=== PATIENT | female | born 1990 | race Caucasian/White ===

== ENCOUNTER 2017-05-24 08:08 | Inpatient (IN) | payer OTHER ==
[2017-05-24 08:32] VITALS: BP 111/62
[2017-05-24] MEDS ORDERED: MORPHINE SULFATE/PF 1 MG/ML 10 ML AMP ONE (09:24)
[2017-05-24] MEDS ORDERED: FentaNYL CITRATE-PF 100 MCG/2 ML VIAL ONE (09:24)
[2017-05-24] MEDS ORDERED: CeFAZolin 2 GM/DEXTROSE 50 ML IV ONE (09:24)
[2017-05-24] MEDS ORDERED: CITRIC ACID/SODIUM CITRATE 30 ML SOLUTION UDCUP PO ONE (09:30)
[2017-05-24] MEDS ORDERED: RINGERS SOLUTION,LACTATED 1,000 ML IV SCH (09:30)
[2017-05-24] MEDS ORDERED: METOCLOPRAMIDE HCL 5 MG/ML 2 ML VIAL IVP ONE (09:30)
[2017-05-24 09:45] LABS: BASOPHILS % (AUTO) 0.5 % (0.0-2.0); EOSINOPHILS % (AUTO) 1.1 % (1.0-6.0); HEMATOCRIT 36.8 % (36-46); HEMOGLOBIN 12.6 g/dL (12.0-16.0); LYMPHOCYTES # (AUTO) 2.7 K/uL (1.0-4.8); LYMPHOCYTES % (AUTO) 23.1 % (22.0-44.0); MEAN CORPUSCULAR HEMOGLOBIN 32.1 pg (26.0-34.0); MEAN CORPUSCULAR HGB CONC 34.2 G/dL (31.0-37.0); MEAN CORPUSCULAR VOLUME 94 fL (80-100); MONOCYTES # (AUTO) 0.7 K/uL (0.1-1.0); MONOCYTES % (AUTO) 5.9 % (2.0-9.0); NEUTROPHILS # (AUTO) 8.1 K/uL (1.8-7.7); NEUTROPHILS % (AUTO) 69.4 % (40.0-70.0); PLATELET COUNT (AUTO)-OB 216 K/uL (150-450); RED BLOOD CELL COUNT(AUTO) 3.92 MIL/uL (4.00-5.20); RED CELL DISTRIBUTION WIDTH 13.8 % (11.5-14.5)
[2017-05-24] MEDS ORDERED: PREN1TAB80 PO (10:12)
[2017-05-24] MEDS ORDERED: ACETAMINOPHEN/CODEINE 300-30 MG TABLET PO PRN (11:30)
[2017-05-24] MEDS ORDERED: LANOLIN 7 GM OINTMENT TP PRN (11:30)
[2017-05-24] MEDS ORDERED: MEPERIDINE-PF 25 MG/ML SYRINGE IVP PRN (11:45)
[2017-05-24] MEDS ORDERED: NALBUPHINE HCL 10 MG/ML VIAL IVP PRN (11:45)
[2017-05-24] MEDS ORDERED: ONDANSETRON HCL 4 MG/2 ML VIAL IVP PRN ×2 (11:45)
[2017-05-24] MEDS ORDERED: FentaNYL CITRATE-PF 100 MCG/2 ML VIAL IVP PRN ×6 (11:45)
[2017-05-24] MEDS ORDERED: PROMETHAZINE HCL 12.5 MG in SODIUM CHLORIDE 0.9% 50 ML IV PRN (11:45)
[2017-05-24] MEDS ORDERED: DiphenhydrAMINE HCL 50 MG/ML VIAL IVP PRN ×2 (11:45)
[2017-05-24] MEDS ORDERED: NALOXONE HCL 0.4 MG/ML VIAL IVP PRN (11:45)
[2017-05-24] MEDS ORDERED: DEXAMETHASONE SOD PHOS 4 MG/ML VIAL IVP PRN (11:45)
[2017-05-24] MEDS ORDERED: NALBUPHINE HCL 10 MG/ML VIAL ONE (11:49)
[2017-05-24] MEDS: NALBUPHINE HCL 10 MG/ML VIAL IVP SCH ×2 (12:07→18:29)
[2017-05-24] MEDS: DEXTROSE 5%-0.45% SODIUM CHL 1,000 ML IV SCH ×3 (12:58→20:53)
[2017-05-25] MEDS: NALBUPHINE HCL 10 MG/ML VIAL IVP SCH ×2 (00:19→05:55)
[2017-05-25] MEDS: DEXTROSE 5%-0.45% SODIUM CHL 1,000 ML IV SCH (01:06)
[2017-05-25] MEDS ORDERED: EPHEDrine SULFATE 50 MG/ML VIAL IM ONE (05:37)
[2017-05-25] MEDS ORDERED: ONDANSETRON HCL 4 MG/2 ML VIAL IVP ONE (05:37)
[2017-05-25] MEDS ORDERED: LIDOCAINE HCL/PF 2% 5 ML VIAL IM ONE (05:37)
[2017-05-25] MEDS ORDERED: PHENYLEPHRINE HCL 10 MG/ML VIAL IVP ONE (05:37)
[2017-05-25] MEDS ORDERED: OXYTOCIN 10 UNITS/ML VIAL IM ONE (05:37)
[2017-05-25] MEDS ORDERED: 0.9% SODIUM CHLORIDE 10 ML VIAL IVP ONE (05:37)
[2017-05-25] MEDS ORDERED: DEXAMETHASONE SOD PHOS 4 MG/ML VIAL IVP ONE (05:37)
[2017-05-25] MEDS: IBUPROFEN 800 MG TABLET PO SCH ×3 (06:49→19:51)
[2017-05-25] MEDS: MAGNESIUM HYDROXIDE SUSPENSION 30 ML UDCUP PO SCH ×2 (08:47→19:52)
[2017-05-25] MEDS: ACETAMINOPHEN/CODEINE 300-30 MG TABLET PO PRN ×2 (09:14→17:21)
[2017-05-26] MEDS: IBUPROFEN 800 MG TABLET PO SCH ×4 (03:03→21:27)
[2017-05-26] MEDS: MAGNESIUM HYDROXIDE SUSPENSION 30 ML UDCUP PO SCH ×2 (08:22→21:00)
[2017-05-27] MEDS: IBUPROFEN 800 MG TABLET PO SCH ×2 (03:32→09:40)
[2017-05-27] MEDS: MAGNESIUM HYDROXIDE SUSPENSION 30 ML UDCUP PO SCH (09:00)
[2017-05-27] MEDS ORDERED: IBUP-2071 PO (10:34)
[2017-05-27] MEDS ORDERED: DSS100 PO (10:35)
[2017-05-27] MEDS ORDERED: ACET1TAB12 PO (10:40)
== END 2017-05-27 13:20 | disposition home or self-care (01) | DRG 766 ==
LOC: OBSVTOIN 08:08 → 4S 08:08
PROVIDERS: ADMIT Obstetrics & Gynecology; ATTEND Obstetrics & Gynecology
PROC: 10D00Z1 Extraction of Products of Conception, Low, Open Approach (ICD-10-PCS; principal; 2017-05-24)
DX: O32.1XX0 Maternal care for breech presentation, not applicable or unspecified (principal); Z37.0 Single live birth; Z3A.39 39 weeks gestation of pregnancy
CPT/HCPCS: 86850; 86900; 86901; 87081; J0690; J1100; J2300; J2370; J2405; J2590; J2765; J3010; J3490; J7120

== ENCOUNTER 2020-02-23 11:45 | Observation (INO) | payer OTHER ==
[~2020-02-23] VITALS: Ht 162.6 cm; Wt 76.7 kg
[~2020-02-23 11:45] MED LIST: ACET-2080 PO; DSS100 PO; IBUP-2071 PO; PREN1TAB80 PO
[2020-02-23 12:15] LABS: COVID AG,FIA SOURCE NASOPHARYNGEAL
== END 2020-02-23 12:05 | disposition home or self-care (01) ==
LOC: 4S 11:45
PROVIDERS: ADMIT Obstetrics & Gynecology; ATTEND Obstetrics & Gynecology
DX: O98.513 Other viral diseases complicating pregnancy, third trimester (principal); U07.1 COVID-19; Z3A.39 39 weeks gestation of pregnancy
CPT/HCPCS: 87426; 99219

== ENCOUNTER 2020-02-28 05:20 | Inpatient (IN) | payer OTHER ==
[~2020-02-28] VITALS: Ht 162.6 cm; Wt 76.7 kg
[2020-02-28] MEDS ORDERED: RINGERS SOLUTION,LACTATED 1,000 ML IV ONE ×3 (06:15→18:45)
[2020-02-28] MEDS ORDERED: METOCLOPRAMIDE HCL 5 MG/ML 2 ML VIAL IVP ONE (06:15)
[2020-02-28] MEDS ORDERED: CITRIC ACID/SODIUM CITRATE 30 ML SOLUTION UDCUP PO ONE (06:15)
[2020-02-28] MEDS ORDERED: ASPI-728 PO (06:47)
[2020-02-28] MEDS ORDERED: ACET-3385 PO (06:48)
[2020-02-28 06:52] VITALS: BP 108/68
[2020-02-28 06:58] LABS: BASOPHILS % (AUTO) 0.2 % (0.0-2.0); EOSINOPHILS % (AUTO) 0.5 % (1.0-6.0); HEMATOCRIT 32.8 % (36-46); HEMOGLOBIN 11.3 g/dL (12.0-16.0); LYMPHOCYTES # (AUTO) 1.2 K/uL (1.0-4.8); LYMPHOCYTES % (AUTO) 19.6 % (22.0-44.0); MEAN CORPUSCULAR HEMOGLOBIN 32.2 pg (26.0-34.0); MEAN CORPUSCULAR HGB CONC 34.5 G/dL (31.0-37.0); MEAN CORPUSCULAR VOLUME 93 fL (80-100); MONOCYTES # (AUTO) 0.6 K/uL (0.1-1.0); MONOCYTES % (AUTO) 9.3 % (2.0-9.0); NEUTROPHILS # (AUTO) 4.4 K/uL (1.8-7.7); NEUTROPHILS % (AUTO) 70.4 % (40.0-70.0); PLATELET COUNT (AUTO)-OB 178 K/uL (150-450); RED BLOOD CELL COUNT(AUTO) 3.52 MIL/uL (4.00-5.20)
[2020-02-28 07:08] LABS: COVID AG,FIA SOURCE NASOPHARYNGEAL
[2020-02-28] MEDS ORDERED: BUPIVACAINE HCL/DEX-WATER/PF 0.75% 2 ML AMP ONE (07:16)
[2020-02-28] MEDS ORDERED: SODIUM CHLORIDE 0.9% 1,000 ML ONE (07:16)
[2020-02-28] MEDS ORDERED: INFLUENZA VIRUS VACCINE QVS 2020-21 (6MO+)/PF 60 MCG/0.5 ML SYRINGE IM ONE (07:45)
[2020-02-28] MEDS ORDERED: MORPHINE SULFATE 10 MG/ML SYRINGE IVP PRN (09:30)
[2020-02-28] MEDS ORDERED: NALBUPHINE HCL 10 MG/ML VIAL IVP PRN ×2 (09:30)
[2020-02-28] MEDS ORDERED: MEPERIDINE-PF 25 MG/ML VIAL IVP PRN (09:30)
[2020-02-28] MEDS ORDERED: HYDROmorphone 2 MG/ML SYRINGE IVP PRN (09:30)
[2020-02-28] MEDS ORDERED: ONDANSETRON HCL 4 MG/2 ML VIAL IVP PRN (09:30)
[2020-02-28] MEDS ORDERED: NALOXONE HCL 0.4 MG/ML VIAL IVP PRN (09:30)
[2020-02-28] MEDS ORDERED: FentaNYL CITRATE-PF 100 MCG/2 ML VIAL IVP PRN ×2 (09:30)
[2020-02-28] MEDS ORDERED: DiphenhydrAMINE HCL 50 MG/ML VIAL IVP PRN (09:30)
[2020-02-28] MEDS ORDERED: MEASLES/MUMPS/RUBELLA VACCINE, LIVE 0.5 ML/VIAL SQ ONE (10:00)
[2020-02-28] MEDS ORDERED: OxyCODONE HCL/ACETAMINOPHEN 5-325 MG TABLET PO PRN ×2 (10:00)
[2020-02-28] MEDS: ACETAMINOPHEN 1000 MG/ISO-OSM 100 ML IV SCH ×2 (13:48→20:22)
[2020-02-28 15:37] VITALS: BP 127/56
[2020-02-28] MEDS: IBUPROFEN 600 MG TABLET PO SCH (20:00)
[2020-02-28] MEDS ORDERED: OXYGEN THERAPY IH SCH ×3 (20:00)
[2020-02-28] MEDS: KETOROLAC TROMETHAMINE 30 MG/ML VIAL IVP SCH (20:22)
[2020-02-28] MEDS: SENNA/DOCUSATE SODIUM 8.6-50 MG TABLET PO SCH (21:00)
[2020-02-29] MEDS: KETOROLAC TROMETHAMINE 30 MG/ML VIAL IVP SCH (02:48)
[2020-02-29] MEDS ORDERED: FentaNYL CITRATE-PF 100 MCG/2 ML VIAL IVP ONE (05:28)
[2020-02-29] MEDS ORDERED: 0.9% SODIUM CHLORIDE 10 ML VIAL IVP ONE (05:28)
[2020-02-29] MEDS ORDERED: KETOROLAC TROMETHAMINE 60 MG/2 ML VIAL IM ONE (05:28)
[2020-02-29] MEDS ORDERED: EPHEDrine SULFATE 50 MG/ML VIAL IM ONE (05:28)
[2020-02-29] MEDS ORDERED: MORPHINE SULFATE/PF 0.5 MG/ML 10 ML AMP IVP ONE (05:28)
[2020-02-29] MEDS ORDERED: OXYTOCIN 10 UNITS/ML VIAL IM ONE (05:28)
[2020-02-29] MEDS ORDERED: ONDANSETRON HCL 4 MG/2 ML VIAL IVP ONE (05:28)
[2020-02-29 07:37] LABS: BASOPHILS % (AUTO) 0.2 % (0.0-2.0); EOSINOPHILS % (AUTO) 0.1 % (1.0-6.0); HEMATOCRIT 32.1 % (36-46); HEMOGLOBIN 11.2 g/dL (12.0-16.0); LYMPHOCYTES # (AUTO) 2.1 K/uL (1.0-4.8); LYMPHOCYTES % (AUTO) 23.1 % (22.0-44.0); MEAN CORPUSCULAR HEMOGLOBIN 32.9 pg (26.0-34.0); MEAN CORPUSCULAR HGB CONC 34.9 G/dL (31.0-37.0); MEAN CORPUSCULAR VOLUME 94 fL (80-100); MONOCYTES # (AUTO) 0.6 K/uL (0.1-1.0); MONOCYTES % (AUTO) 6.9 % (2.0-9.0); NEUTROPHILS # (AUTO) 6.3 K/uL (1.8-7.7); NEUTROPHILS % (AUTO) 69.7 % (40.0-70.0); PLATELET COUNT (AUTO)-OB 192 K/uL (150-450); RED CELL DISTRIBUTION WIDTH 13.1 % (11.5-14.5)
[2020-02-29] MEDS: IBUPROFEN 600 MG TABLET PO SCH ×3 (11:45→23:45)
[2020-02-29] MEDS: SENNA/DOCUSATE SODIUM 8.6-50 MG TABLET PO SCH ×2 (11:45→23:45)
[2020-02-29] MEDS ORDERED: ENOXAPARIN SODIUM 40 MG/0.4 ML PF SYRINGE SQ SCH (15:45)
[2020-03-01] MEDS: SENNA/DOCUSATE SODIUM 8.6-50 MG TABLET PO SCH (08:26)
[2020-03-01] MEDS: IBUPROFEN 600 MG TABLET PO SCH (08:29)
[2020-03-01] MEDS ORDERED: PERCT PO (09:06)
[2020-03-01] MEDS ORDERED: FERR-89 PO (09:07)
[2020-03-01] MEDS ORDERED: DOCU-275 PO (09:07)
[2020-03-01] MEDS ORDERED: IBUP-2070 PO (09:08)
== END 2020-03-01 10:30 | disposition home or self-care (01) | DRG 786 ==
LOC: 4S 05:20 → OBSVTOIN 05:20
PROVIDERS: ADMIT Obstetrics & Gynecology; ATTEND Obstetrics & Gynecology
PROC: 10D00Z1 Extraction of Products of Conception, Low, Open Approach (ICD-10-PCS; principal; 2020-02-28)
DX: O98.52 Other viral diseases complicating childbirth (principal); U07.1 COVID-19; O34.211 Maternal care for low transverse scar from previous cesarean delivery; Z3A.39 39 weeks gestation of pregnancy; Z37.0 Single live birth
CPT/HCPCS: 86850; 86900; 86901; 87081; 87426; J0131; J0690; J1650; J1885; J2274; J2405; J2590; J2765; J3010; J3490; J7030; J7120